=== PATIENT | male | born 1945 | race Caucasian/White ===

== ENCOUNTER 2020-02-21 06:21 | Emergency (ER) | payer MEDICARE ==
[2020-02-21] MEDS ORDERED: Sodium Chloride 0.9% 10 ML Syringe FLUSH PRN (06:35)
[2020-02-21] MEDS ORDERED: Morphine 4 MG/ML Syringe IVPUSH PRN (06:35)
[2020-02-21] MEDS ORDERED: Nitroglycerin 0.4 MG Tab.SL SL PRN (06:35)
--- NOTE | 2020-02-21 06:38 | EDM.PDOC ---
<OfficerJamie - Last Filed: 02/21/20 06:37> ED HPI GENERAL MEDICAL PROBLEM - General Chief Complaint: Chest Pain Stated Complaint: CHEST PAIN Time Seen by Provider: 02/21/20 06:33 Source of Information: Reports: Patient, RN Notes Reviewed History Limitations: Reports: No Limitations - History of Present Illness INITIAL COMMENTS - FREE TEXT/NARRATIVE: 74-year-old gentleman presents emergency department a complaint of chest pain, he states he has had chest pain on and off for the last week or so but usually goes away this morning it woke him up at 430 and has not gone away he rates the pain 5 out of 10 no nausea vomiting no shortness of breath he was diaphoretic earlier this morning. No history of heart disease and he does not use tobacco products however he does drink alcohol - Related Data Allergies Allergy/AdvReac Type Severity Reaction Status Date / Time No Known Allergies Allergy Verified 05/25/15 08:10 Home Meds: Home Meds Aspirin 81 mg PO DAILY 02/21/20 [History] Gabapentin [Neurontin] 900 mg PO QID 02/21/20 [History] Glimepiride [Amaryl] 2 mg PO WITHBREAKFAST 02/21/20 [History] Meloxicam [Mobic] 7.5 mg PO DAILY 02/21/20 [History] Multivitamin [Multivitamins] 1 each PO DAILY 02/21/20 [History] Nortriptyline 50 mg PO BEDTIME 02/21/20 [History] atorvaSTATin [Lipitor] 20 mg PO BEDTIME 02/21/20 [History] dilTIAZem HCL [Diltiazem 24Hr ER (Xr)] 240 mg PO DAILY 02/21/20 [History] lisinopriL [Prinivil] 20 mg PO DAILY 02/21/20 [History] metFORMIN [Glucophage] 1,000 mg PO BIDMEALS 02/21/20 [History] Past Medical History Cardiovascular History: Reports: Hypertension Social & Family History - Tobacco Use Tobacco Use Status *Q: Never Tobacco User ED ROS GENERAL - Review of Systems Review Of Systems: See Below Constitutional: Reports: Diaphoresis HEENT: Reports: No Symptoms Respiratory: Reports: No Symptoms Cardiovascular: Reports: Chest Pain GI/Abdominal: Reports: No Symptoms ED EXAM, GENERAL - Physical Exam Exam: See Below Exam Limited By: No Limitations General Appearance: Alert, Mild Distress Respiratory/Chest: No Respiratory Distress, Lungs Clear, Normal Breath Sounds, No Accessory Muscle Use, Chest Non-Tender Cardiovascular: Regular Rate, Rhythm, No Murmur GI/Abdominal: Soft, Non-Tender Extremities: No Pedal Edema Departure - Departure Disposition: DC/Tfer to [facility] Clinical Impression: Non-STEMI (non-ST elevated myocardial infarction), Elevated blood sugar Referrals: Errol Velazco MD [Primary Care Provider] - Forms: ED Department Discharge <Mundo Sanchez - Last Filed: 02/21/20 08:04> ED HPI GENERAL MEDICAL PROBLEM - History of Present Illness Onset Date: 02/18/20 Duration: Intermittent, Waxing/Waning Location: Reports: Chest Quality: Reports: Pressure Severity: Moderate Improves with: Reports: Rest (not today) Context: Reports: Other (See HPI, no cardiac hx) Associated Symptoms: Reports: Chest Pain. 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) chest Pain Score (Numeric/FACES): 1 ED ROS GENERAL - Review of Systems : Reports: No Symptoms Musculoskeletal: Reports: No Symptoms Skin: Reports: No Symptoms Neurological: Reports: No Symptoms ED EXAM, GENERAL - Physical Exam General Appearance: WD/WN Eye Exam: Bilateral Eye: Normal Inspection, PERRL Ears: Normal External Exam, Normal Canal, Hearing Grossly Normal Ear Exam: Bilateral Ear: Auricle Normal, Canal Normal Nose: Normal Inspection, No Blood Throat/Mouth: Normal Inspection, Normal Lips, Normal Oropharynx, Normal Voice, No Airway Compromise Head: Atraumatic, Normocephalic Neck: Normal Inspection, Supple, Non-Tender Back Exam: Normal Inspection. No: CVA Tenderness (R), CVA Tenderness (L) Extremities: Normal Inspection, Normal Range of Motion, Non-Tender. No: Pedal Edema Neurological: Alert, Oriented, CN II-XII Intact, Normal Cognition, No Motor/Sensory Deficits Psychiatric: Normal Affect, Normal Mood Skin Exam: Warm, Dry, Intact, Normal Color, No Rash #1 Interpretation EKG Date: 02/21/20 Time: 06:15 Rhythm: NSR Rate (Beats/Min): 75 Hastings: LAD-Left Hastings Deviation P-Wave: Present QRS: Normal ST-T: Normal QT: Normal Comparison: NA - No Prior EKG Course - Vital Signs Text/Narrative:: Called [facility] @ 0745h, waiting for a call back from their hospitalist. Dr. Ruiz accepted @ 0800h Last Recorded V/S: Last Vital Signs Temp 37.1 C 02/21/20 06:25 Pulse 98 02/21/20 06:59 Resp 15 02/21/20 07:40 BP 112/72 02/21/20 07:40 Pulse Ox 96 02/21/20 07:40 - Orders/Labs/Meds Orders: Active Orders 24 hr Category Date Time Status Cardiac Monitoring [RC] .As Directed Care 02/21/20 06:35 Active EKG Documentation Completion [RC] ASDIRECTED Care 02/21/20 06:36 Active Peripheral IV Care [RC] . DIRECTED Care 02/21/20 06:36 Active Chest 1V Frontal [CR] Stat Exams 02/21/20 06:36 Taken Heparin Sodium/D5W [Heparin 25,000 Units in D5W 500 ML] Med 02/21/20 08:00 Active 25,000 units in 500 ml IV TITRATE Morphine Med 02/21/20 06:35 Active 4 mg IVPUSH Q10M PRN Nitroglycerin [Nitrostat] Med 02/21/20 06:35 Active 0.4 mg SL Q5M PRN Sodium Chloride 0.9% [Saline Flush] Med 02/21/20 06:35 Active 10 ml FLUSH ASDIRECTED PRN Peripheral IV Insertion Adult [OM.PC] Stat Oth 02/21/20 06:35 Ordered Saline Lock Insert [OM.PC] Stat Oth 02/21/20 06:35 Ordered EKG 12 Lead [EK] Stat Ther 02/21/20 06:36 Ordered Medication Orders Heparin Sodium/Dextrose (Heparin 25,000 Units In D5w 500 Ml) 25,000 units in 500 mls @ 20 mls/hr IV TITRATE MIGDALIA Morphine Sulfate (Morphine) 4 mg IVPUSH Q10M PRN PRN Reason: Chest Pain Stop: 02/22/20 06:36 Nitroglycerin (Nitrostat) 0.4 mg SL Q5M PRN PRN Reason: Chest Pain Stop: 02/22/20 06:36 Last Admin: 02/21/20 06:48 Dose: 0.4 mg Documented by: HENDLIS Sodium Chloride (Saline Flush) 10 ml FLUSH ASDIRECTED PRN PRN Reason: Keep Vein Open Last Admin: 02/21/20 06:48 Dose: 10 ml Documented by: FRITZ Labs: Laboratory Tests 02/21/20 02/21/20 02/21/20 Range/Units 06:45 06:45 06:45 WBC 10.2 (4.5-11.0) K/uL RBC 5.01 (4.30-5.90) M/uL Hgb 15.4 H (12.0-15.0) g/dL Hct 44.7 (40.0-54.0) % MCV 89 (80-98) fL MCH 31 (27-31) pg MCHC 35 (32-36) % Plt Count 223 (150-400) K/uL Neut % (Auto) 68 H (36-66) % Lymph % (Auto) 20 L (24-44) % Chambers % (Auto) 9 H (2-6) % Eos % (Auto) 2 (2-4) % Baso % (Auto) 0 (0-1) % PT 10.7 (9.5-12.0) sec INR 0.98 (0.80-1.20) APTT 24.8 L (27.0-36.0) sec Sodium 140 (140-148) mmol/L Potassium 4.3 (3.6-5.2) mmol/L Chloride 104 (100-108) mmol/L Carbon Dioxide 23 (21-32) mmol/L Anion Gap 13.1 (5.0-14.0) mmol/L BUN 16 (7-18) mg/dL Creatinine 1.1 (0.8-1.3) mg/dL Est Cr Clr Drug Dosing 62.75 mL/min Estimated GFR (MDRD) > 60 (>60) Glucose 207 H (74-106) mg/dL Calcium 8.8 (8.5-10.1) mg/dL Total Bilirubin 0.7 (0.2-1.0) mg/dL AST 18 (15-37) U/L ALT 39 (12-78) U/L Alkaline Phosphatase 107 (46-116) U/L Troponin I 0.110 H* (0.000-0.056) ng/mL Total Protein 6.4 (6.4-8.2) g/dL Albumin 3.6 (3.4-5.0) g/dL Globulin 2.8 (2.3-3.5) g/dL Albumin/Globulin Ratio 1.3 (1.2-2.2) SARS CoV-2 RNA Rapid TERRA 02/21/20 Range/Units 07:16 WBC (4.5-11.0) K/uL RBC (4.30-5.90) M/uL Hgb (12.0-15.0) g/dL Hct (40.0-54.0) % MCV (80-98) fL MCH (27-31) pg MCHC (32-36) % Plt Count (150-400) K/uL Neut % (Auto) (36-66) % Lymph % (Auto) (24-44) % Chambers % (Auto) (2-6) % Eos % (Auto) (2-4) % Baso % (Auto) (0-1) % PT (9.5-12.0) sec INR (0.80-1.20) APTT (27.0-36.0) sec Sodium (140-148) mmol/L Potassium (3.6-5.2) mmol/L Chloride (100-108) mmol/L Carbon Dioxide (21-32) mmol/L Anion Gap (5.0-14.0) mmol/L BUN (7-18) mg/dL Creatinine (0.8-1.3) mg/dL Est Cr Clr Drug Dosing mL/min Estimated GFR (MDRD) (>60) Glucose (74-106) mg/dL Calcium (8.5-10.1) mg/dL Total Bilirubin (0.2-1.0) mg/dL AST (15-37) U/L ALT (12-78) U/L Alkaline Phosphatase (46-116) U/L Troponin I (0.000-0.056) ng/mL Total Protein (6.4-8.2) g/dL Albumin (3.4-5.0) g/dL Globulin (2.3-3.5) g/dL Albumin/Globulin Ratio (1.2-2.2) SARS CoV-2 RNA Rapid TERRA Negative Meds: Medications Generic Name Dose Route Start Last Admin Trade Name Freq PRN Reason Stop Dose Admin Heparin Sodium/Dextrose 25,000 units in 500 mls @ 20 mls/hr 02/21/20 08:00 Heparin 25,000 Units In D5w 500 Ml IV TITRATE MIGDALIA 1,000 UNITS/HR Morphine Sulfate 4 mg 02/21/20 06:35 Morphine IVPUSH 02/22/20 06:36 Q10M PRN Chest Pain Nitroglycerin 0.4 mg 02/21/20 06:35 02/21/20 06:48 Nitrostat SL 02/22/20 06:36 0.4 mg Q5M PRN Administration Chest Pain Sodium Chloride 10 ml 02/21/20 06:35 02/21/20 06:48 Saline Flush FLUSH 10 ml ASDIRECTED PRN Administration Keep Vein Open Discontinued Medications Generic Name Dose Route Start Last Admin Trade Name Jose A PRN Reason Stop Dose Admin Aspirin 324 mg 02/21/20 07:18 02/21/20 07:34 Aspirin PO 02/21/20 07:19 Not Given ONETIME ONE Heparin Sodium (Porcine) 5,000 units 02/21/20 07:19 02/21/20 07:29 Heparin Sodium IVPUSH 02/21/20 07:20 5,000 units ONETIME ONE Administration Ticagrelor 180 mg 02/21/20 07:19 02/21/20 07:29 Brilinta PO 02/21/20 07:20 180 mg ONETIME ONE Administration - Radiology Interpretation Free Text/Narrative:: CXR-neg - Re-Assessments/Exams Free Text/Narrative Re-Assessment/Exam: 02/21/20 07:33 Pain went from 5/10 to 1/0 after a single NTG SL, then after oxygen per NC at 2 liters/min pain is 0. Departure - Departure Time of Disposition: 08:25 Reason for Transfer *Q: Other Condition: Serious Sepsis Event Note (ED) - Focused Exam Vital Signs: Vital Signs Temp Pulse Resp BP BP Pulse Ox 02/21/20 07:40 15 112/72 96 02/21/20 06:59 98 18 107/68 94 L 02/21/20 06:48 88 17 139/84 139/84 92 L 02/21/20 06:25 37.1 C 90 19 150/90 H 93 L - My Orders Last 24 Hours: My Active Orders 02/21/20 08:00 Heparin Sodium/D5W [Heparin 25,000 Units in D5W 500 ML] 25,000 units in 500 ml IV TITRATE - Assessment/Plan Last 24 Hours: My Active Orders 02/21/20 08:00 Heparin Sodium/D5W [Heparin 25,000 Units in D5W 500 ML] 25,000 units in 500 ml IV TITRATE
[2020-02-21] MEDS ORDERED: Aspirin 81 MG Tab.Chew PO ONE (07:18)
[2020-02-21] MEDS ORDERED: Ticagrelor 90 MG Tab PO ONE (07:19)
[2020-02-21] MEDS ORDERED: Heparin Sodium 5,000 Units/ML Vial IVPUSH ONE (07:19)
[2020-02-21] MEDS ORDERED: Heparin Sodium/D5W 25,000 UNITS/500 ML BAG IV SCH (08:00)
--- NOTE | 2020-02-22 09:57 | CR ---
CHEST: Portable 02/21/2020 at 7:00 AM CLINICAL HISTORY:Chest pain COMPARISON:None FINDINGS: Heart size and pulmonary vascularity are normal. There are atherosclerotic changes in the aorta. There is mild prominence of the lung markings in both bases with some scattered tiny nodules. This is likely from previous granulomatous exposure. Impression: No acute cardiopulmonary process Chronic lung field changes in the bases and previous granulomatous exposure
== END 2020-02-21 08:36 ==
LOC: JP.ED 06:21
DX: I21.4 Non-ST elevation (NSTEMI) myocardial infarction (principal); R73.9 Hyperglycemia, unspecified; I10 Essential (primary) hypertension; Z20.828 Contact with and (suspected) exposure to other viral communicable diseases; Z79.82 Long term (current) use of aspirin; Z79.899 Other long term (current) drug therapy
CPT/HCPCS: 36415; 71045; 80053; 84484; 85025; 85610; 85730; 93005; 93010; 96374; 96376; 99285; A9270; J1644; U0002

== ENCOUNTER 2020-04-25 13:28 | Emergency (ER) | payer MEDICARE ==
--- NOTE | 2020-04-25 14:50 | EDM.PDOC ---
ED HPI GENERAL MEDICAL PROBLEM - General Chief Complaint: General Stated Complaint: DIZZINESS Time Seen by Provider: 04/25/20 14:36 Source of Information: Reports: Patient, Family, RN Notes Reviewed History Limitations: Reports: No Limitations - History of Present Illness INITIAL COMMENTS - FREE TEXT/NARRATIVE: 75-year-old gentleman presents emergency department a complaint of dizziness, he recently had myocardial infarction early part of February does have a known history of diabetes and dyslipidemia was on blood pressure medications of diltiazem and lisinopril after his myocardial infarction medication of Coreg was initiated. He states that that time he has had difficulty with lightheadedness he notices this especially when he stands up he feels lightheaded like he is going to pass out no nausea vomiting shortness of breath or chest pain the dizziness does stabilize after period of time he is also been checking his blood pressure at home has noticed that has been quite low systolics in the 90s - Related Data Allergies Allergy/AdvReac Type Severity Reaction Status Date / Time No Known Allergies Allergy Verified 04/25/20 13:50 Home Meds: Home Meds Aspirin 81 mg PO DAILY 02/21/20 [History] Gabapentin [Neurontin] 900 mg PO QID 02/21/20 [History] Glimepiride [Amaryl] 2 mg PO WITHBREAKFAST 02/21/20 [History] Multivitamin [Multivitamins] 1 each PO DAILY 02/21/20 [History] Nortriptyline 50 mg PO BEDTIME 02/21/20 [History] atorvaSTATin [Lipitor] 20 mg PO BEDTIME 02/21/20 [History] dilTIAZem HCL [Diltiazem 24Hr ER (Xr)] 240 mg PO DAILY 02/21/20 [History] lisinopriL [Prinivil] 20 mg PO DAILY 02/21/20 [History] metFORMIN [Glucophage] 1,000 mg PO BIDMEALS 02/21/20 [History] Clopidogrel [Plavix] 75 mg PO DAILY 04/25/20 [History] Nitroglycerin 0.3 mg SL ASDIRECTED 04/25/20 [History] carvediloL [Carvedilol] 3.125 mg PO BID 04/25/20 [History] dilTIAZem HCL [Diltiazem 24Hr ER] 120 mg PO DAILY #30 cap.sa.24h 02/08/21 [Rx] predniSONE 30 mg PO DAILY 04/25/20 [History] Past Medical History HEENT History: Reports: Hard of Hearing Cardiovascular History: Reports: CAD, High Cholesterol, Hypertension, [place], Stents Neurological History: Reports: CVA Psychiatric History: Reports: Depression Endocrine/Metabolic History: Reports: Diabetes, Type II, Obesity/BMI 30+ - Infectious Disease History Infectious Disease History: Reports: Chicken Pox, Measles - Past Surgical History GI Surgical History: Reports: Colonoscopy Neurological Surgical History: Reports: Lumbar Spine, Other (See Below) Other Neurological Surgeries/Procedures: pain stimulator Musculoskeletal Surgical History: Reports: Knee Replacement Social & Family History - Tobacco Use Tobacco Use Status *Q: Never Tobacco User - Caffeine Use Caffeine Use: Reports: Coffee ED ROS GENERAL - Review of Systems Review Of Systems: See Below Constitutional: Reports: No Symptoms Respiratory: Reports: No Symptoms Cardiovascular: Reports: Palpitations GI/Abdominal: Reports: No Symptoms ED EXAM, GENERAL - Physical Exam Exam: See Below Free Text/Narrative:: Orthostatic blood pressures do show about 10 point difference systolically Exam Limited By: No Limitations General Appearance: Alert, WD/WN, No Apparent Distress Respiratory/Chest: No Respiratory Distress, Lungs Clear, Normal Breath Sounds, No Accessory Muscle Use, Chest Non-Tender Cardiovascular: Regular Rate, Rhythm, No Murmur Course - Vital Signs Last Recorded V/S: Last Vital Signs Temp 98.0 F 04/25/20 14:01 Pulse 63 04/25/20 14:01 Resp 14 04/25/20 14:01 BP 105/63 04/25/20 14:01 Pulse Ox 97 04/25/20 14:01 Orthostatic Blood Pressure [ 92/50 Standing] Orthostatic Blood Pressure [ 101/61 Sitting] Orthostatic Blood Pressure [ 105/63 Supine] - Orders/Labs/Meds Labs: Laboratory Tests 04/25/20 04/25/20 04/25/20 Range/Units 15:00 15:00 15:00 WBC 11.5 H (4.5-11.0) K/uL RBC 4.44 (4.30-5.90) M/uL Hgb 13.6 (12.0-15.0) g/dL Hct 40.9 (40.0-54.0) % MCV 92 (80-98) fL MCH 31 (27-31) pg MCHC 33 (32-36) % Plt Count 200 (150-400) K/uL Neut % (Auto) 88 H (36-66) % Lymph % (Auto) 9 L (24-44) % Lane % (Auto) 3 (2-6) % Eos % (Auto) 0 L (2-4) % Baso % (Auto) 0 (0-1) % Sodium 135 L (140-148) mmol/L Potassium 5.5 H (3.6-5.2) mmol/L Chloride 100 (100-108) mmol/L Carbon Dioxide 27 (21-32) mmol/L Anion Gap 13.5 (5.0-14.0) mmol/L BUN 24 H (7-18) mg/dL Creatinine 1.3 (0.8-1.3) mg/dL Est Cr Clr Drug Dosing 52.29 mL/min Estimated GFR (MDRD) 54 L (>60) Glucose 248 H (74-106) mg/dL Calcium 9.4 (8.5-10.1) mg/dL Troponin I 0.017 (0.000-0.056) ng/mL Departure - Departure Time of Disposition: 15:34 Disposition: Home, Self-Care 01 Condition: Fair Clinical Impression: Lightheadedness - Discharge Information Prescriptions: dilTIAZem HCL [Diltiazem 24Hr ER] 120 mg PO DAILY #30 cap.sa.24h Instructions: Dizziness, [id number] Referrals: Errol Velazco MD [Primary Care Provider] - Forms: ED Department Discharge Additional Instructions: The new medication of diltiazem 120 mg once a day has been faxed to [facility] start this medication tomorrow I want you to record your blood pressure once a day at random times as well as your symptoms please follow-up with your primary care in the next 1 to 2 weeks for reevaluation of your blood pressure and recheck your potassium at that time. Also recommend stop the banana daily and reviewed the multivitamin to make sure you are getting no excess potassium, call return to the emergency department worsening symptoms Sepsis Event Note (ED) - Evaluation Sepsis Screening Result: No Definite Risk - Focused Exam Vital Signs: Vital Signs Temp Pulse Resp BP Pulse Ox 04/25/20 14:01 98.0 F 63 14 105/63 97 04/25/20 13:42 98.0 F 63 14 105/63 97 - Assessment/Plan Plan: Assessment Acuity = acute Site and laterality = lightheadedness Etiology = probable hypotension secondary to blood pressure medications Manifestations = none Location of injury = Home Lab values = CBC unremarkable potassium elevated 5.5 consistent hyperkalemia, glucose elevated to 48 consistent hyperglycemia troponin was negative Plan I did review his lab work with him he does eat a banana every day and he takes supplemental vitamins they are going to review how much potassium he is getting in his vitamin and trying to cut that back, decreased his diltiazem from 240 mg daily to 120 mg daily he is going to do a blood pressure journal and record his symptoms over the next couple weeks and then follow-up with his primary care at that time for reevaluation medications have been sent to [facility] This note was dictated using [employer] voice recognition software please call with any questions on syntax or grammar.
== END 2020-04-25 15:50 | disposition home or self-care (01) ==
LOC: JP.ED 13:28
DX: R42 Dizziness and giddiness (principal); I25.10 Atherosclerotic heart disease of native coronary artery without angina pectoris; E78.00 Pure hypercholesterolemia, unspecified; I10 Essential (primary) hypertension; I25.2 Old myocardial infarction; E11.9 Type 2 diabetes mellitus without complications; E66.9 Obesity, unspecified; Z68.34 Body mass index [BMI] 34.0-34.9, adult; Z95.5 Presence of coronary angioplasty implant and graft; Z86.73 Personal history of transient ischemic attack (TIA), and cerebral infarction without residual deficits; Z79.82 Long term (current) use of aspirin; Z79.84 Long term (current) use of oral hypoglycemic drugs; Z79.02 Long term (current) use of antithrombotics/antiplatelets; Z79.899 Other long term (current) drug therapy
CPT/HCPCS: 36415; 80048; 84484; 85025; 99284

== ENCOUNTER 2020-06-07 11:05 | Emergency (ER) | payer MEDICARE ==
--- NOTE | 2020-06-07 11:09 | EDM.PDOC ---
ED HPI GENERAL MEDICAL PROBLEM - General Chief Complaint: General Stated Complaint: WEAKNESS, CAN'T MOVE LEGS Time Seen by Provider: 06/07/20 11:30 Source of Information: Reports: Patient, Family History Limitations: Reports: No Limitations - History of Present Illness INITIAL COMMENTS - FREE TEXT/NARRATIVE: 75-year-old male who underwent cardiac stents 2 months ago and has been doing well since then, riding a bike daily and having more energy until this morning he got up and he feels "like a zombie". He feels lightheaded, he feels he is leaning to 1 side somewhat, and his feet want to go but his legs will not move. It is generalized, not asymmetrical and there is no specific weakness in an arm leg or face. No vision changes. No chest pain, shortness of breath, GI s ymptoms, diaphoresis, and he received his second Covid vaccine 3 weeks ago. Denies fever or chills. He is able to walk Onset: Unknown/Unsure (Woke up feeling this way) Location: Reports: Generalized (Mostly feeling weak in his legs) Associated Symptoms: Reports: Headaches (Mild intermittent headaches over the last couple days), Malaise, Weakness. Denies: Confusion, Chest Pain, Cough, Shortness of Breath - Related Data Allergies Allergy/AdvReac Type Severity Reaction Status Date / Time No Known Allergies Allergy Verified 06/07/20 11:23 Home Meds: Home Meds Aspirin 81 mg PO DAILY 02/21/20 [History] Gabapentin [Neurontin] 900 mg PO QID 02/21/20 [History] Glimepiride [Amaryl] 4 mg PO WITHBREAKFAST 02/21/20 [History] Multivitamin [Multivitamins] 1 each PO DAILY 02/21/20 [History] Nortriptyline 50 mg PO BEDTIME 02/21/20 [History] atorvaSTATin [Lipitor] 20 mg PO BEDTIME 02/21/20 [History] lisinopriL [Prinivil] 20 mg PO DAILY 02/21/20 [History] metFORMIN [Glucophage] 1,000 mg PO BIDMEALS 02/21/20 [History] Clopidogrel [Plavix] 75 mg PO DAILY 04/25/20 [History] Nitroglycerin 0.3 mg SL ASDIRECTED 04/25/20 [History] carvediloL [Carvedilol] 3.125 mg PO BID 04/25/20 [History] dilTIAZem HCL [Diltiazem 24Hr ER] 120 mg PO DAILY #30 cap.sa.24h 04/25/20 [Rx] predniSONE 20 mg PO DAILY 04/25/20 [History] Past Medical History HEENT History: Reports: Hard of Hearing Cardiovascular History: Reports: CAD, High Cholesterol, Hypertension, [place], Stents Neurological History: Reports: CVA Psychiatric History: Reports: Depression Endocrine/Metabolic History: Reports: Diabetes, Type II, Obesity/BMI 30+ - Infectious Disease History Infectious Disease History: Reports: Chicken Pox, Measles - Past Surgical History GI Surgical History: Reports: Colonoscopy Neurological Surgical History: Reports: Lumbar Spine, Other (See Below) Other Neurological Surgeries/Procedures: pain stimulator Musculoskeletal Surgical History: Reports: Knee Replacement Social & Family History - Caffeine Use Caffeine Use: Reports: Coffee ED ROS GENERAL - Review of Systems Review Of Systems: See Below Constitutional: Denies: Fever, Chills HEENT: Denies: Ear Pain, Vision Change Respiratory: Reports: No Symptoms Cardiovascular: Denies: Blood Pressure Problem, Palpitations Endocrine: Reports: Other (He is diabetic, has not checked his glucose in a few days) GI/Abdominal: Reports: No Symptoms : Reports: No Symptoms Musculoskeletal: Denies: Joint Pain, Joint Swelling Skin: Denies: Pallor, Diaphoresis, Bruising Neurological: Reports: Dizziness, Difficulty Walking, Weakness Psychiatric: Reports: No Symptoms ED EXAM, GENERAL - Physical Exam Exam: See Below Exam Limited By: No Limitations General Appearance: Alert, No Apparent Distress Eye Exam: Bilateral Eye: Normal Inspection Ears: Normal TMs Head: Atraumatic Neck: Supple, Non-Tender Respiratory/Chest: No Respiratory Distress, Lungs Clear Cardiovascular: Regular Rate, Rhythm GI/Abdominal: Normal Bowel Sounds, Soft, Non-Tender Extremities: Normal Inspection, Other (He is able to hold both legs up against gravity with some effort. Plantar and dorsiflexion of both feet are symmetric). No: Pedal Edema Neurological: Alert, Oriented, No Motor/Sensory Deficits, Other (No facial asymmetry or asymmetric weakness of the extremities) Skin Exam: Warm, Dry Course - Vital Signs Last Recorded V/S: Last Vital Signs Temp 98 F 06/07/20 11:19 Pulse 87 06/07/20 11:19 Resp 13 06/07/20 11:19 BP 122/72 06/07/20 11:19 Pulse Ox 95 06/07/20 11:19 - Orders/Labs/Meds Labs: Laboratory Tests 06/07/20 06/07/20 Range/Units 11:54 11:54 WBC 10.7 (4.5-11.0) K/uL RBC 4.38 (4.30-5.90) M/uL Hgb 13.6 (12.0-15.0) g/dL Hct 40.3 (40.0-54.0) % MCV 92 (80-98) fL MCH 31 (27-31) pg MCHC 34 (32-36) % Plt Count 210 (150-400) K/uL Neut % (Auto) 85 H (36-66) % Lymph % (Auto) 9 L (24-44) % [place] % (Auto) 6 (2-6) % Eos % (Auto) 0 L (2-4) % Baso % (Auto) 0 (0-1) % Sodium 136 L (140-148) mmol/L Potassium 5.0 (3.6-5.2) mmol/L Chloride 101 (100-108) mmol/L Carbon Dioxide 24 (21-32) mmol/L Anion Gap 16.0 H (5.0-14.0) mmol/L BUN 19 H (7-18) mg/dL Creatinine 1.2 (0.8-1.3) mg/dL Est Cr Clr Drug Dosing 56.65 mL/min Estimated GFR (MDRD) 59 L (>60) Glucose 245 H (74-106) mg/dL Calcium 9.6 (8.5-10.1) mg/dL Total Bilirubin 1.1 H D (0.2-1.0) mg/dL AST 9 L (15-37) U/L ALT 27 (12-78) U/L Alkaline Phosphatase 79 (46-116) U/L Troponin I < 0.017 (0.000-0.056) ng/mL Total Protein 6.4 (6.4-8.2) g/dL Albumin 3.5 (3.4-5.0) g/dL Globulin 2.9 (2.3-3.5) g/dL Albumin/Globulin Ratio 1.2 (1.2-2.2) - Re-Assessments/Exams Free Text/Narrative Re-Assessment/Exam: 06/07/20 11:55 CBC, CMP, troponin and head CT were obtained. Patient is concerned that his heart may be going bad again, he was reassured that that is unlikely the cause. 06/07/20 12:43 Labs are reassuring and similar to baseline labs in the past. Troponin is 0. CT shows some mild atrophy but no acute findings. I encouraged the patient to stay hydrated, increase activity as tolerated and check again in 2 to 3 days if not improving satisfactorily. Departure - Departure Time of Disposition: 13:09 Disposition: Home, Self-Care 01 Clinical Impression: Weakness of both lower extremities, Unsteady gait when walking - Discharge Information Instructions: Weakness, [id number] Referrals: Errol Velazco MD [Primary Care Provider] - Forms: ED Department Discharge Care Plan Goals: Concentrate on staying hydrated, continue your regular medications, and increase activity as tolerated. Consider rechecking in 2 to 3 days if not improving satisfactorily, or return anytime if worsening or concerns. Sepsis Event Note (ED) - Focused Exam Vital Signs: Vital Signs Temp Pulse Resp BP Pulse Ox 06/07/20 11:19 98 F 87 13 122/72 95 06/07/20 11:17 98 F 87 13 122/72 95
--- NOTE | 2020-06-07 12:55 | CT ---
Head wo Cont CLINICAL HISTORY: Leg weakness, unsteady gait COMPARISON: None TECHNIQUE: Transverse scans were obtained from the base of the skull through the vertex without IV contrast on a multislice, multidetector CT scanner. Auto dosage reduction and iterative reconstruction techniques employed. FINDINGS: There is a punctate well-demarcated, low-attenuation focus in the posterior right basal ganglia. The this may represent some volume averaging. This may represent an old lacunar-type infarct. There is no mass effect, hemorrhage, or extraaxial collection. The basal cisterns and sulci over the convexities are prominent. The ventricles are normal. 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
== END 2020-06-07 13:10 | disposition home or self-care (01) ==
LOC: JP.ED 11:05
DX: R53.1 Weakness (principal); R26.81 Unsteadiness on feet; R42 Dizziness and giddiness; R51.9 Headache, unspecified; R53.81 Other malaise; I25.10 Atherosclerotic heart disease of native coronary artery without angina pectoris; E78.00 Pure hypercholesterolemia, unspecified; I10 Essential (primary) hypertension; I25.2 Old myocardial infarction; E11.9 Type 2 diabetes mellitus without complications; E66.9 Obesity, unspecified; Z68.30 Body mass index [BMI] 30.0-30.9, adult; Z86.73 Personal history of transient ischemic attack (TIA), and cerebral infarction without residual deficits; Z95.5 Presence of coronary angioplasty implant and graft; Z79.82 Long term (current) use of aspirin; Z79.02 Long term (current) use of antithrombotics/antiplatelets; Z79.84 Long term (current) use of oral hypoglycemic drugs; Z79.899 Other long term (current) drug therapy
CPT/HCPCS: 36415; 70450; 70450-26; 80053; 84484; 85025; 99283; 99284-25

== ENCOUNTER 2020-06-20 17:42 | Emergency (ER) | payer MEDICARE ==
[2020-06-20] MEDS: Sodium Chloride 0.9% 1,000 ML IV SCH (18:35)
--- NOTE | 2020-06-20 18:37 | EDM.PDOC ---
ED HPI GENERAL MEDICAL PROBLEM - General Chief Complaint: Allergic Reaction Stated Complaint: DIARRHEA, RASH, VOMITING Time Seen by Provider: 06/20/20 18:20 Source of Information: Reports: Patient, Family History Limitations: Reports: No Limitations - History of Present Illness INITIAL COMMENTS - FREE TEXT/NARRATIVE: 75-year-old male arrives with nausea and vomiting and diarrhea for the past 5 hours, for the past 2 hours she has developed some swelling and redness of his arms bilaterally and proximal legs. No shortness of breath, the redness is slightly tender but not significantly pruritic. He has no widespread hives. He was recently started on a prednisone taper for polymyalgia rheumatica. No other new medications, no foods that he is reacted to in the past that he is suspicious of. The redness is actually improving, it is now mostly just on his hands. Onset: Sudden (Symptoms developed within the last 5 hours) Location: Reports: Upper Extremity, Left, Upper Extremity, Right, Lower Extremity, Left, Lower Extremity, Right Associated Symptoms: Reports: Nausea/Vomiting, Other (Diarrhea). Denies: Chest Pain, Cough, Diaphoresis, Fever/Chills, Headaches, Shortness of Breath - Related Data Allergies Allergy/AdvReac Type Severity Reaction Status Date / Time No Known Allergies Allergy Verified 06/07/20 11:23 Home Meds: Home Meds Aspirin 81 mg PO DAILY 02/21/20 [History] Gabapentin [Neurontin] 900 mg PO QID 02/21/20 [History] Glimepiride [Amaryl] 4 mg PO WITHBREAKFAST 02/21/20 [History] Multivitamin [Multivitamins] 1 each PO DAILY 02/21/20 [History] Nortriptyline 50 mg PO BEDTIME 02/21/20 [History] atorvaSTATin [Lipitor] 20 mg PO BEDTIME 02/21/20 [History] lisinopriL [Prinivil] 20 mg PO DAILY 02/21/20 [History] metFORMIN [Glucophage] 1,000 mg PO BIDMEALS 02/21/20 [History] Clopidogrel [Plavix] 75 mg PO DAILY 04/25/20 [History] Nitroglycerin 0.3 mg SL ASDIRECTED 04/25/20 [History] carvediloL [Carvedilol] 3.125 mg PO BID 04/25/20 [History] dilTIAZem HCL [Diltiazem 24Hr ER] 120 mg PO DAILY #30 cap.sa.24h 04/25/20 [Rx] predniSONE 14 mg PO DAILY 04/25/20 [History] Past Medical History HEENT History: Reports: Hard of Hearing Cardiovascular History: Reports: CAD, High Cholesterol, Hypertension, ID, Stents Other Cardiovascular History: march 23. Gastrointestinal History: Reports: None Musculoskeletal History: Reports: None Neurological History: Reports: CVA Psychiatric History: Reports: Depression Endocrine/Metabolic History: Reports: Diabetes, Type II, Obesity/BMI 30+ - Infectious Disease History Infectious Disease History: Reports: Chicken Pox, Measles, Other (See Below) Other Infectious Disease History: whooping cough - Past Surgical History Head Surgeries/Procedures: Reports: None HEENT Surgical History: Reports: None Cardiovascular Surgical History: Reports: Coronary Artery Stent Other Cardiovascular Surgeries/Procedures: placed march 23 GI Surgical History: Reports: Colonoscopy Endocrine Surgical History: Reports: None Neurological Surgical History: Reports: Lumbar Spine, Other (See Below) Other Neurological Surgeries/Procedures: pain stimulator Musculoskeletal Surgical History: Reports: Knee Replacement Dermatological Surgical History: Reports: None Social & Family History - Family History Family Medical History: No Pertinent Family History - Caffeine Use Caffeine Use: Reports: Coffee, Tea ED ROS ALLERGIC REACTION - Review of Systems Review Of Systems: See Below Constitutional: Denies: Fever, Chills HEENT: Reports: No Symptoms Respiratory: Denies: Shortness of Breath, Cough Cardiovascular: Denies: Chest Pain, Palpitations GI/Abdominal: Reports: Diarrhea, Nausea, Vomiting. Denies: Hematemesis, Hematochezia Musculoskeletal: Reports: Other (Chronic arm pain, recently started on prednisone) Skin: Reports: Erythema Neurological: Denies: Headache, Paresthesia Psychiatric: Reports: No Symptoms ED EXAM GENERAL NO PERIP PULSE - Physical Exam Exam: See Below Exam Limited By: No Limitations General Appearance: Alert, No Apparent Distress Eye Exam: Bilateral Eye: Normal Inspection Head: Atraumatic, Normocephalic Respiratory/Chest: No Respiratory Distress, Lungs Clear Cardiovascular: Regular Rate, Rhythm, Tachycardia GI/Abdominal: Soft, Non-Tender Extremities: Other (Both parents have blanching erythema up through to the elbows, and some diffuse angioedema-like swelling of the hands) Neurological: Alert, Oriented Psychiatric: Normal Affect, Normal Mood Skin Exam: Erythema (Blanching erythema of the hands) Course - Vital Signs Last Recorded V/S: Last Vital Signs Temp 97.7 F 06/20/20 18:36 Pulse 121 H 06/20/20 19:47 Resp 18 06/20/20 18:36 BP 198/121 H 06/20/20 19:47 Pulse Ox 96 06/20/20 18:36 - Orders/Labs/Meds Labs: Laboratory Tests 06/20/20 06/20/20 Range/Units 18:40 18:40 WBC 21.8 H (4.5-11.0) K/uL RBC 5.47 (4.30-5.90) M/uL Hgb 16.8 H D (12.0-15.0) g/dL Hct 49.0 (40.0-54.0) % MCV 90 (80-98) fL MCH 31 (27-31) pg MCHC 34 (32-36) % Plt Count 299 (150-400) K/uL Neut % (Auto) 92 H (36-66) % Lymph % (Auto) 5 L (24-44) % Delta % (Auto) 3 (2-6) % Eos % (Auto) 0 L (2-4) % Baso % (Auto) 0 (0-1) % Sodium 140 (140-148) mmol/L Potassium 5.0 (3.6-5.2) mmol/L Chloride 103 (100-108) mmol/L Carbon Dioxide 22 (21-32) mmol/L Anion Gap 15.2 H (5.0-14.0) mmol/L BUN 21 H (7-18) mg/dL Creatinine 1.2 (0.8-1.3) mg/dL Est Cr Clr Drug Dosing 56.65 mL/min Estimated GFR (MDRD) 59 L (>60) Glucose 268 H (74-106) mg/dL Calcium 9.7 (8.5-10.1) mg/dL Meds: Medications Discontinued Medications Generic Name Dose Route Start Last Admin Trade Name Freq PRN Reason Stop Dose Admin Carvedilol 3.125 mg 06/20/20 19:31 06/20/20 19:47 Carvedilol 3.125 Mg Tab PO 06/20/20 19:32 3.125 mg ONETIME ONE Administration Diphenhydramine HCl 25 mg 06/20/20 18:37 06/20/20 18:41 Diphenhydramine 50 Mg/Ml Sdv IVPUSH 06/20/20 18:38 25 mg ONETIME ONE Administration Sodium Chloride 1,000 mls @ 1,000 mls/hr 06/20/20 18:45 06/20/20 18:35 Normal Saline IV 1,000 mls/hr ASDIRECTED MIGDALIA Administration Labetalol HCl 10 mg 06/20/20 19:32 06/20/20 19:48 Labetalol 20 Mg/4 Ml Syringe IVPUSH 06/20/20 19:33 10 mg ONETIME ONE Administration Protocol Methylprednisolone Sodium Succinate 125 mg 06/20/20 19:02 06/20/20 19:11 Methylprednisolone Sodium Succinate 125 Mg/2 Ml Sdv IVPUSH 06/20/20 19:03 125 mg ONETIME ONE Administration Ondansetron HCl 4 mg 06/20/20 18:34 06/20/20 18:39 Ondansetron 4 Mg/2 Ml Sdv IVPUSH 06/20/20 18:35 4 mg ONETIME ONE Administration - Re-Assessments/Exams Free Text/Narrative Re-Assessment/Exam: 06/20/20 19:42 An IV was started and the patient was given 1 L bolus of normal saline along with 25 mg of IV Benadryl. He had no further diarrhea or vomiting while in the emergency room but after 20 minutes he still had significant erythema of his hands so he was given 125 mg of IV Solu-Medrol. He missed his evening Coreg dose and his blood pressure was near normal on arrival but started to elevate so he was given his normal dose of Coreg and 10 mg of IV labetalol. 06/20/20 19:52 20 minutes after the Coreg and labetalol, his pulse and blood pressure normalized. He continued to have some moderate erythema of his hands and slight swelling but he was improving. He will be discharged to continue on his regular medications, and return anytime if worsening such as shortness of breath or increased pain, he can also recheck in 1 to 2 days if not improving satisfactorily. Departure - Departure Time of Disposition: 20:26 Disposition: Home, Self-Care 01 Clinical Impression: Hand edema Allergic reaction Qualifiers: Encounter type: initial encounter Qualified Code(s): T78.40XA - Allergy, unspecified, initial encounter - Discharge Information Instructions: Allergies, Adult, [id number] Referrals: Errol Velazco MD [Primary Care Provider] - Forms: ED Department Discharge Care Plan Goals: Continue with your medications, a repeat dose of Benadryl before bedtime may be helpful. Return anytime if worsening such as shortness of breath or increased pain, or consider rechecking in 1 to 2 days if not improving satisfactorily. Concentrate on liquids initially, and advance diet as tolerated Sepsis Event Note (ED) - Focused Exam Vital Signs: Vital Signs Pulse BP 06/20/20 19:47 121 H 198/121 H
[2020-06-20] MEDS: Ondansetron 4 MG/2 ML SDV IVPUSH ONE (18:39)
[2020-06-20] MEDS: diphenhydrAMINE 50 MG/ML SDV IVPUSH ONE (18:41)
[2020-06-20] MEDS: methylPREDNISolone Sodium Succinate 125 MG/2 ML SDV IVPUSH ONE (19:11)
[2020-06-20] MEDS: Carvedilol 3.125 MG Tab PO ONE (19:47)
[2020-06-20] MEDS: Labetalol 20 MG/4 ML Syringe IVPUSH ONE (19:48)
== END 2020-06-20 20:27 | disposition home or self-care (01) ==
LOC: JP.ED 17:42
DX: R20.0 Anesthesia of skin (principal); T78.40XA Allergy, unspecified, initial encounter; I25.10 Atherosclerotic heart disease of native coronary artery without angina pectoris; E78.00 Pure hypercholesterolemia, unspecified; I10 Essential (primary) hypertension; I25.2 Old myocardial infarction; E11.9 Type 2 diabetes mellitus without complications; E66.9 Obesity, unspecified; Z79.82 Long term (current) use of aspirin; Z79.84 Long term (current) use of oral hypoglycemic drugs; Z79.02 Long term (current) use of antithrombotics/antiplatelets; Z79.899 Other long term (current) drug therapy; Z95.5 Presence of coronary angioplasty implant and graft; Z86.73 Personal history of transient ischemic attack (TIA), and cerebral infarction without residual deficits
CPT/HCPCS: 36415; 80048; 85025; 96374; 96375; 99284; A9270; J1200; J2405; J2930; J3490; J7030

== ENCOUNTER 2023-06-26 16:30 | Emergency (ER) | payer MEDICARE ==
[2023-06-26] MEDS: Morphine 10 MG/ML Syringe IM ONE (19:12)
[2023-06-26] MEDS: Lidocaine 1% 5 ML VIAL ONE (19:34)
[2023-06-26] MEDS: cefTRIAXone 1 GM, Lidocaine 1% 2.1 ML IM ONE (20:24)
[2023-06-26] MEDS: Baclofen 10 MG Tab PO ONE (20:25)
[2023-06-27] MEDS ORDERED: metFORMIN 500 MG Tab PO ONE (19:16)
== END 2023-06-26 20:33 | disposition home or self-care (01) ==
LOC: JP.ED 16:30
DX: S61.111A Laceration without foreign body of right thumb with damage to nail, initial encounter (principal); S67.01XA Crushing injury of right thumb, initial encounter; I10 Essential (primary) hypertension; E78.00 Pure hypercholesterolemia, unspecified; I25.10 Atherosclerotic heart disease of native coronary artery without angina pectoris; I25.2 Old myocardial infarction; E11.9 Type 2 diabetes mellitus without complications; E66.9 Obesity, unspecified; Z79.82 Long term (current) use of aspirin; Z79.84 Long term (current) use of oral hypoglycemic drugs; Z79.899 Other long term (current) drug therapy; Z95.5 Presence of coronary angioplasty implant and graft; Z87.891 Personal history of nicotine dependence; Z86.73 Personal history of transient ischemic attack (TIA), and cerebral infarction without residual deficits; Z68.32 Body mass index [BMI] 32.0-32.9, adult; W26.8XXA Contact with other sharp object(s), not elsewhere classified, initial encounter
CPT/HCPCS: 12001; 73140; 96372; 99283; A9270; J0696; J2270

== ENCOUNTER 2024-10-14 10:14 | Emergency (ER) | payer MEDICARE ==
[2024-10-14 11:11] LABS: BASOPHILS ABSOLUTE AUTO 0.03 K/uL (0.00-0.10); BASOPHILS PERCENT AUTO 0.5 % (0.1-1.3); EOSINOPHILS ABSOLUTE AUTO 0.39 K/uL (0.00-0.40); EOSINOPHILS PERCENT AUTO 6.5 % (0.0-5.4); IMMATURE GRAN PERCENT AUTO 0.2 % (0.0-0.7); LYMPHOCYTES ABSOLUTE AUTO 1.50 K/uL (0.8-3.3); LYMPHOCYTES PERCENT AUTO 25.0 % (11.4-47.7); MONOCYTES ABSOLUTE AUTO 0.71 K/uL (0.20-0.90); MONOCYTES PERCENT AUTO 11.8 % (3.3-12.6); NEUTROPHILS ABSOLUTE AUTO 3.37 K/uL (1.0-7.6); NEUTROPHILS PERCENT AUTO 56.0 % (40.0-78.1); PLATELET COUNT,PLT 193 K/uL (130-375); RED BLOOD CELL COUNT 4.87 M/uL (4.14-5.76); WHITE BLOOD CELL COUNT,WBC 6.0 K/uL (3.2-11.0)
[2024-10-14 11:20] LABS: IMMATURE GRAN ABSOLUTE AUTO 0.01 K/uL (0.00-0.23)
[2024-10-14 11:30] LABS: INR 1.0
[2024-10-14 11:35] LABS: A/G RATIO 1.3 (1.2-2.2); ALANINE AMINOTRANSFERASE,ALT 26 U/L (12-78); ASPARTATE AMNIOTRANSFERASE,AST 12 U/L (15-37); BILIRUBIN TOTAL 0.9 mg/dL (0.2-1.0); BLOOD UREA NITROGEN,BUN 25 mg/dL (7-18); CARBON DIOXIDE,CO2 25 mmol/L (21-32); CHLORIDE,CL 102 mmol/L (100-108); CREATININE 1.2 mg/dL (0.8-1.3); EST CRCL DRUG DOSING (CG) 53.16 mL/min; ESTIMATED GFR 62 mL/min (>60); GLUCOSE RANDOM 276 mg/dL (74-106); POTASSIUM,K 4.6 mmol/L (3.6-5.2); PROTEIN TOTAL,TP 7.0 g/dL (6.4-8.2); SODIUM,NA 138 mmol/L (140-148)
[2024-10-14 11:36] LABS: CREATINE KINASE,CK 39 U/L (39-308); TROPONIN I HIGH SENSITIVITY 7.5 pg/mL (<=60.3)
[2024-10-14] MEDS: Iopamidol 612 MG/ML 100 ML Bottle IV ONE (12:49)
[2024-10-14] MEDS: Sodium Chloride 0.9% 10 ML Syringe FLUSH ONE (12:49)
[2024-10-14 14:39] LABS: APPEARANCE,URINE CLEAR (CLEAR); GLUCOSE,URINE 500 mg/dL (NEGATIVE); OCCULT BLOOD,URINE NEGATIVE (NEGATIVE)
[2024-10-14 15:04] LABS: SQUAMOUS EPITHELIAL CELLS,UR RARE /HPF; UROTHELIAL CELLS,URINE NOT SEEN /HPF
== END 2024-10-14 15:38 | disposition home or self-care (01) ==
LOC: JP.ED 10:14
DX: M51.14 Intervertebral disc disorders with radiculopathy, thoracic region (principal); I71.40 Abdominal aortic aneurysm, without rupture, unspecified; I10 Essential (primary) hypertension; E78.00 Pure hypercholesterolemia, unspecified; I25.10 Atherosclerotic heart disease of native coronary artery without angina pectoris; E11.9 Type 2 diabetes mellitus without complications; R91.8 Other nonspecific abnormal finding of lung field; Z79.82 Long term (current) use of aspirin; Z79.899 Other long term (current) drug therapy; Z79.84 Long term (current) use of oral hypoglycemic drugs
CPT/HCPCS: 36415; 71260; 72128; 74177; 80053; 81001; 82550; 83605; 83690; 83735; 84484; 85025; 85379; 85610; 86140; 93005; 93010; 96360; 96361; 99284; 99285; A9270; J7030; Q9967

== ENCOUNTER 2024-10-30 22:58 | Emergency (ER) | payer MEDICARE ==
[2024-10-31 00:12] LABS: BASOPHILS ABSOLUTE AUTO 0.03 K/uL (0.00-0.10); BASOPHILS PERCENT AUTO 0.4 % (0.1-1.3); EOSINOPHILS ABSOLUTE AUTO 0.29 K/uL (0.00-0.40); EOSINOPHILS PERCENT AUTO 3.7 % (0.0-5.4); IMMATURE GRAN ABSOLUTE AUTO 0.05 K/uL (0.00-0.23); IMMATURE GRAN PERCENT AUTO 0.6 % (0.0-0.7); LYMPHOCYTES ABSOLUTE AUTO 1.39 K/uL (0.8-3.3); LYMPHOCYTES PERCENT AUTO 17.6 % (11.4-47.7); MONOCYTES ABSOLUTE AUTO 0.79 K/uL (0.20-0.90); MONOCYTES PERCENT AUTO 10.0 % (3.3-12.6); NEUTROPHILS ABSOLUTE AUTO 5.34 K/uL (1.0-7.6); NEUTROPHILS PERCENT AUTO 67.7 % (40.0-78.1); PLATELET COUNT,PLT 176 K/uL (130-375); RED BLOOD CELL COUNT 5.11 M/uL (4.14-5.76); WHITE BLOOD CELL COUNT,WBC 7.9 K/uL (3.2-11.0)
[2024-10-31 00:20] LABS: A/G RATIO 1.1 (1.2-2.2); ALANINE AMINOTRANSFERASE,ALT 27 U/L (12-78); ASPARTATE AMNIOTRANSFERASE,AST 17 U/L (15-37); BILIRUBIN TOTAL 1.0 mg/dL (0.2-1.0); BLOOD UREA NITROGEN,BUN 23 mg/dL (7-18); CARBON DIOXIDE,CO2 30 mmol/L (21-32); CHLORIDE,CL 99 mmol/L (100-108); CREATININE 1.1 mg/dL (0.8-1.3); EST CRCL DRUG DOSING (CG) 58.00 mL/min; ESTIMATED GFR 68 mL/min (>60); GLUCOSE RANDOM 221 mg/dL (74-106); POTASSIUM,K 5.3 mmol/L (3.6-5.2); PROTEIN TOTAL,TP 7.7 g/dL (6.4-8.2); SODIUM,NA 137 mmol/L (140-148)
== END 2024-10-31 01:19 | disposition home or self-care (01) ==
LOC: JP.ED 22:58
DX: I10 Essential (primary) hypertension (principal); I25.10 Atherosclerotic heart disease of native coronary artery without angina pectoris; E78.00 Pure hypercholesterolemia, unspecified; I25.2 Old myocardial infarction; E11.9 Type 2 diabetes mellitus without complications; Z86.73 Personal history of transient ischemic attack (TIA), and cerebral infarction without residual deficits; Z95.5 Presence of coronary angioplasty implant and graft; Z79.82 Long term (current) use of aspirin; Z79.899 Other long term (current) drug therapy; Z79.84 Long term (current) use of oral hypoglycemic drugs; Z87.891 Personal history of nicotine dependence
CPT/HCPCS: 36415; 80053; 83605; 84484; 85025; 99283; A9270